=== PATIENT | male | born 1970 | race Caucasian/White ===

== ENCOUNTER 2016-07-04 12:22 | Emergency (ER) | payer OTHER ==
[2016-07-04] VITALS (8 sets, daily range): BP systolic 106–137; BP diastolic 68–83; PULSE 85–145; RESP 14–18; TEMP 98.1; O2SAT 96–99
[~2016-07-04] VITALS: Ht 167.6 cm; Wt 87.0 kg
[~2016-07-04 12:22] MED LIST: LORT5TAB PO; PROM1SUP12 PR; Z.0.NO CURRENT MEDS; ZOFR4TAB3 SL
[2016-07-04] MEDS ORDERED: DILTIAZEM INJ 125 MG in SODIUM CHLORIDE 0.9% INJ 100 ML IV SCH (12:30)
[2016-07-04] MEDS ORDERED: SODIUM CHLOR 0.9% 1000 ML INJ 1,000 ML IV SCH (12:30)
[2016-07-04] MEDS ORDERED: DILTIAZEM HCL 25 MG/5 ML VIAL IVP ONE (12:30)
[2016-07-04 12:48] LABS: AUTOMATED NEUTROPHIL # 4.1 TH/MM3 (1.8-7.7); BASOPHIL % 0.4 % (0.0-2.0); EOSINOPHIL # 0.1 TH/MM3 (0-0.4); HEMATOCRIT 48.9 % (39.0-51.0); HEMO FLAGS DIFF FINAL; LYMPH % 34.7 % (9.0-44.0); LYMPHOCYTE # 2.4 TH/MM3 (1.0-4.8); MEAN CELL VOLUME 85.4 FL (80.0-100.0); MEAN CORPUSCULAR HEMOGLOBIN 29.3 PG (27.0-34.0); MEAN CORPUSCULAR HGB CONC 34.3 % (32.0-36.0); MONO % 5.7 % (0.0-8.0); NEUT % 57.2 % (16.0-70.0); PLATELET COUNT 245 TH/MM3 (150-450); RED BLOOD COUNT 5.73 MIL/MM3 (4.50-5.90); RED CELL DISTRIBUTION WIDTH 11.9 % (11.6-17.2)
[2016-07-04 12:56] LABS: CHLORIDE 103 MEQ/L (98-107); POTASSIUM 3.7 MEQ/L (3.5-5.1); SODIUM (NA) 142 MEQ/L (136-145)
[2016-07-04 13:00] LABS: ANION GAP 10 MEQ/L (5-15); BICARBONATE 28.6 MEQ/L (21.0-32.0); BLOOD UREA NITROGEN 13 MG/DL (7-18)
[2016-07-04 13:01] LABS: APTT (PATIENT) 29.7 SEC (24.3-30.1)
[2016-07-04 13:03] LABS: ALT (GPT) 64 U/L (12-78); AST (GOT) 24 U/L (15-37); GLOMERULAR FILTRATION RATE 51 ML/MIN (>89)
[2016-07-04 13:04] LABS: TOTAL BILIRUBIN ADULT 0.5 MG/DL (0.2-1.0)
--- NOTE | 2016-07-04 13:04 | PD ---
HPI Chief Complaint: Cardiac Complaint Time Seen by Provider: 12:28 Travel History International Travel<30 days: No Contact w/Intl Traveler<30days: No Traveled to known affect area: No History of Present Illness HPI 45-year-old male complains of palpitation and chest discomfort. Patient states that he has intermittent palpitation for the past 6 months. Patient states the palpitations usually lasted about 5-10 minutes and resolved completely. Patient denies any fever chills coughing congestion. Patient denies any thyroid problem. Patient denies any illicit drugs alcohol abuse. Patient states that he has mild chest wall discomfort with the palpitations this morning. Patient denies any pain radiation. Patient denies any nausea diaphoresis. Patient denies any fever chills. Patient denies any history hypertension, diabetes, dyslipidemia. Patient is a nonsmoker. PFS Past Medical History Medical History: Denies Significant Hx Pancreatitis: Yes (2010) Tetanus Vaccination: > 5 Years Influenza Vaccination: No Past Surgical History Surgical History: No Previous Surgery Social History Alcohol Use: Yes (BEER DAILY) Tobacco Use: No Substance Use: No Allergies-Medications (Allergen,Severity, Reaction): Coded Allergies: No Known Allergies (Verified , 07/04/16) Reported Meds & Prescriptions Reported Meds & Active Scripts Active No Active Prescriptions or Reported Medications Review of Systems General / Constitutional: No: Fever Eyes: No: Visual changes HENT: No: Headaches Cardiovascular: Positive: Chest Pain or Discomfort, Palpitations Respiratory: No: Shortness of Breath Gastrointestinal: No: Abdominal Pain Genitourinary: No: Dysuria Musculoskeletal: No: Pain Skin: No Rash Neurologic: No: Weakness Psychiatric: No: Depression Endocrine: No: Polydipsia Hematologic/Lymphatic: No: Easy Bruising Physical Exam Narrative GENERAL: Well-nourished, well-developed patient. SKIN: Warm and dry. HEAD: Normocephalic. EYES: No scleral icterus. No injection or drainage. NECK: Supple, trachea midline. No JVD or lymphadenopathy. CARDIOVASCULAR: Regular irregular rate and rhythm without murmurs, gallops, or rubs. RESPIRATORY: Breath sounds equal bilaterally. No accessory muscle use. GASTROINTESTINAL: Abdomen soft, non-tender, nondistended. MUSCULOSKELETAL: No cyanosis, or edema. BACK: Nontender without obvious deformity. No CVA tenderness. Neurologic exam normal. Data Data Last Documented VS Vital Signs Date Time Temp Pulse Resp B/P Pulse Ox O2 Delivery O2 Flow Rate FiO2 07/04/16 14:29 88 14 126/79 96 Room Air 07/04/16 13:30 2 07/04/16 12:25 98.1 Orders Electrocardiogram (07/04/16 12:28) Complete Blood Count With Diff (07/04/16 12:28) Comprehensive Metabolic Panel (07/04/16 12:28) Creatine Kinase (Cpk) (07/04/16 12:28) Troponin I (07/04/16 12:28) B-Type Natriuretic Peptide (07/04/16 12:28) Prothrombin Time / Inr (Pt) (07/04/16 12:28) Act Partial Throm Time (Ptt) (07/04/16 12:28) Thyroid Stimulating Hormone (07/04/16 12:28) Chest, Single Ap (07/04/16 12:28) Iv Access Insert/Monitor (07/04/16 12:28) Ecg Monitoring (07/04/16 12:28) Oximetry (07/04/16 12:28) Sodium Chlor 0.9% 1000 Ml Inj (Ns 1000 M (07/04/16 12:30) Vital Signs (Adult) Q15MX4,Q4H (07/04/16 12:28) Side Seam Machine Operator / Telemetry JANET.Q8H (07/04/16 12:28) Cardiac Rhythm JANET.Q8H (07/04/16 12:28) ^ Notify Dr: Other (07/04/16 12:28) Diltiazem Inj (Cardizem Inj) (07/04/16 12:30) Diltiazem Inj (Cardizem Inj) (07/04/16 12:30) Electrocardiogram (07/04/16 ) Diltiazem Cd (Cardizem Cd) (07/04/16 14:00) Aspirin (Aspirin) (07/04/16 14:00) Labs Laboratory Tests Test 07/04/16 12:40 White Blood Count 7.0 TH/MM3 Red Blood Count 5.73 MIL/MM3 Hemoglobin 16.8 GM/DL Hematocrit 48.9 % Mean Corpuscular Volume 85.4 FL Mean Corpuscular Hemoglobin 29.3 PG Mean Corpuscular Hemoglobin 34.3 % Concent Red Cell Distribution Width 11.9 % Platelet Count 245 TH/MM3 Mean Platelet Volume 7.9 FL Neutrophils (%) (Auto) 57.2 % Lymphocytes (%) (Auto) 34.7 % Monocytes (%) (Auto) 5.7 % Eosinophils (%) (Auto) 2.0 % Basophils (%) (Auto) 0.4 % Neutrophils # (Auto) 4.1 TH/MM3 Lymphocytes # (Auto) 2.4 TH/MM3 Monocytes # (Auto) 0.4 TH/MM3 Eosinophils # (Auto) 0.1 TH/MM3 Basophils # (Auto) 0.0 TH/MM3 CBC Comment DIFF FINAL Differential Comment Prothrombin Time 11.0 SEC Prothromb Time International 1.0 RATIO Ratio Activated Partial 29.7 SEC Thromboplast Time Sodium Level 142 MEQ/L Potassium Level 3.7 MEQ/L Chloride Level 103 MEQ/L Carbon Dioxide Level 28.6 MEQ/L Anion Gap 10 MEQ/L Blood Urea Nitrogen 13 MG/DL Creatinine 1.50 MG/DL Estimat Glomerular Filtration 51 ML/MIN Rate Random Glucose 108 MG/DL Calcium Level 8.6 MG/DL Total Bilirubin 0.5 MG/DL Aspartate Amino Transf 24 U/L (AST/SGOT) Alanine Aminotransferase 64 U/L (ALT/SGPT) Alkaline Phosphatase 58 U/L Total Creatine Kinase 114 U/L Troponin I LESS THAN 0.02 NG/ML B-Type Natriuretic Peptide 91 PG/ML Total Protein 7.9 GM/DL Albumin 4.2 GM/DL Thyroid Stimulating Hormone 1.110 uIU/ML [address] [place] [address] Medical Decision Making Medical Screen Exam Complete: Yes Emergency Medical Condition: Yes Interpretation(s) 1321 PM. CBC within normal limit. Creatinine 1.5. Cardiac enzymes are normal. BNP 91. Differential Diagnosis Differential diagnosis including atrial fibrillation, atrial flutter, PACs, PVCs. Narrative Course 45-year-old male with new onset atrial fibrillation. Cardizem bolus and drip given. Patient converted to sinus rhythm. I spoke with Dr. Martel, maintainability engineer business administration professor. Advised Cardizem CD and follow-up outpatient. Advised aspirin daily. Patient was given Cardizem CD 120 mg by mouth now and aspirin 325 mg by mouth now. Diagnosis Primary Impression: Paroxysmal atrial fibrillation Patient Instructions: General Instructions Additional Instructions: Take Cardizem CD daily. Aspirin 325 mg by mouth daily. Follow-up with maintainability engineer. Return if increasing palpitation, tachycardia, chest pain shortness of breath. Med/Other Pt SpecificInfo: Prescription(s) given Scripts Diltiazem CD 24 HR (Cardizem CD 24 HR)120 Mg [id number] Mg PO DAILY #30 CAP Ref 0 Prov:Erwin Yen MD 07/04/16 Disposition: 01 DISCHARGE HOME Condition: Stable Erwin Yen MD Jul 04, 2016 13:04
[2016-07-04 13:06] LABS: ALKALINE PHOSPHATASE 58 U/L (45-117); CREATINE KINASE 114 U/L (39-308)
--- NOTE | 2016-07-04 13:31 | RADHPO ---
EXAM DATE/TIME: 07/04/2016 12:49 [facility] COMPARISON: No previous studies available for comparison. INDICATIONS : Chest pain, complains of dizziness. MEDICAL HISTORY : Pancreatitis. SURGICAL HISTORY : None. ENCOUNTER: Initial ACUITY: 2 weeks PAIN SCORE: 6/10 LOCATION: Left chest FINDINGS: A single view of the chest demonstrates the lungs to be symmetrically aerated without evidence of mas s, infiltrate or effusion. The cardiomediastinal contours are unremarkable. Osseous structures are intact. CONCLUSION: Normal examination. Trenton Ford Jr., MD on July 04, 2016 at 13:29 Board Certified Radiologist. This report was verified electronically.
[2016-07-04] MEDS ORDERED: ASPIRIN 325 MG TAB PO ONE (14:00)
[2016-07-04] MEDS ORDERED: DILTIAZEM-CD 120 MG CAP ER PO ONE (14:00)
[2016-07-04] MEDS ORDERED: CARD120C4 PO (15:04)
--- NOTE | 2016-07-04 21:14 | EKG ---
Date Performed: 07/04/2016 Time Performed: 13:21:42 PTAGE: 45 years EKG: Sinus rhythm Lateral ST elevation - possible early repolarization Borderline ECG COMPARED TO PRIOR ELECTROCARDIOG MANDA, Sinus rhythm appears to have replaced atrial fibrillation/flutter. PREVIOUS TRACING : 07/04/2016 12.22 DOCTOR: Jose Cruz Bacon Interpretating Date/Time 07/04/2016 21:13:58
--- NOTE | 2016-07-04 21:42 | EKG ---
Date Performed: 07/04/2016 Time Performed: 12:22:26 PTAGE: 45 years EKG: BASELINE ARTIFACT PRESENT. Possible atrial flutter with rapid ventricular response Abnormal ECG NO PREVIOUS TRACING DOCTOR: Jose Cruz Bacon Interpretating Date/Time 07/04/2016 21:41:51
== END 2016-07-04 15:19 | disposition home or self-care (01) ==
LOC: PHED 12:22
DX: I48.0 Paroxysmal atrial fibrillation (principal); R94.31 Abnormal electrocardiogram [ECG] [EKG]
CPT/HCPCS: 71010; 80053; 82550; 83880; 84443; 84484; 85025; 85610; 85730; 93005; 96374; 96376; 99285; J7030